=== PATIENT | female | born 1995 | race Caucasian/White ===

== ENCOUNTER 2022-08-29 15:03 | Emergency (ER) | payer MEDICAID ==
[~2022-08-29] VITALS: Ht 175.3 cm; Wt 83.5 kg
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
--- NOTE | 2022-08-29 15:52 | NUR ---
RESP. TECH AT BEDSIDE FOR BOOLD GAS
[2022-08-29 16:00] LABS: ABG BASE EXCESS 0.9 mmol/L; ABG PCO2 28.8 mmHg (35.0-45.0); ABG PH 7.519 (7.350-7.450); ABG PO2 101.6 mmHg (75.0-100.0); COHb 0.3 % (0.5-1.5); MetHb 0.2 % (0.0-1.5); O2Hb 97.3 % (94.0-97.0); SITE, ABG Right Radial; VENT MODE, BG Room Air
--- NOTE | 2022-08-29 16:02 | NUR ---
X-RAY TECH AT BEDSIDE
[2022-08-29] MEDS ORDERED: ALPR0.25 PO (16:27)
--- NOTE | 2022-08-29 16:59 | NUR ---
Patient discharged to home in stable condition. Written and verbal after care instructions given. Patient verbalizes understanding of instruction.
[2022-08-29 17:02] VITALS: BP 132/55
== END 2022-08-29 17:02 | disposition home or self-care (01) ==
LOC: ER 15:06
DX: F45.8 Other somatoform disorders (principal)
CPT/HCPCS: 36600; 71045-TC; 82803-TC